=== PATIENT | female | born 1985 | race Caucasian/White ===

== ENCOUNTER 2016-07-28 00:18 | Emergency (ER) | payer SELFPAY ==
[2016-07-28 00:19] VITALS: BMI 30.8
[2016-07-28 00:53] VITALS: BP 142/89; PULSE 83; RESP 19; TEMP 98; O2SAT 100
[2016-07-28] MEDS ORDERED: DiphenhydrAMINE 50 mg/ml Inj IV STA (01:01)
--- NOTE | 2016-07-28 01:18 | ED PDOC ---
HPI: Skin/Bite Injury Time Seen by Provider: 07/28/16 00:48 Chief Complaint (Nursing): Abnormal Skin Integrity Chief Complaint (Provider): rash History Per: Patient History/Exam Limitations: no limitations Onset/Duration Of Symptoms: Hrs (8) Current Symptoms Are (Timing): Still Present Quality Of Symptoms: Itching Additional History Per: Patient Additional Complaint(s): 31 y/o female no past medical history presents with generalized prutitic rash x 8 hours. Patient notes feeling "flushed". Denies facial swelling, difficulty speaking/swallowing, cough, chest pain, shortness of breath, palpitations, known allergen. Past Medical History Reviewed: Historical Data, Nursing Documentation, Vital Signs Vital Signs: Last Vital Signs Temp 98 F 07/28/16 00:47 Pulse 83 07/28/16 00:47 Resp 19 07/28/16 00:47 BP 142/89 07/28/16 00:47 Pulse Ox 100 07/28/16 01:18 - Medical History PMH: No Chronic Diseases - Family History Family History: States: Unknown Family Hx - Living Arrangements Living Arrangements: With Family - Immunization History Hx Tetanus Toxoid Vaccination: No Hx Influenza Vaccination: Yes Hx Pneumococcal Vaccination: No - Home Medications Home Medications: Ambulatory Orders Medication Instructions Recorded Bacitracin 1 ea TP TID PRN #20 g 07/11/13 Cephalexin [Keflex] 2 cap PO BID #14 cap 07/11/13 Multivitamin and [id number] 1 tab PO DAILY 07/11/13 [] Prednisone 50 mg PO DAILY #4 tablet 07/28/16 - Allergies Allergies/Adverse Reactions: Allergies Allergy/AdvReac Type Severity Reaction Status Date / Time No Known Allergies Allergy Verified 06/17/13 03:31 Review of Systems ROS Statement: Except As Marked, All Systems Reviewed And Found Negative Skin: Positive for: Rash Physical Exam - Reviewed Nursing Documentation Reviewed: Yes Vital Signs Reviewed: Yes - Physical Exam Appears: Positive for: Well, Non-toxic, Uncomfortable (scratching) Head Exam: Positive for: ATRAUMATIC, NORMAL INSPECTION, NORMOCEPHALIC Skin: Positive for: Rash (erythematous welts scattered throughout face, chest, abdomen, back, bL upper and lower extremities. ) Eye Exam: Positive for: Normal appearance ENT: Positive for: Normal ENT Inspection Cardiovascular/Chest: Positive for: Regular Rate, Rhythm Respiratory: Positive for: Normal Breath Sounds Gastrointestinal/Abdominal: Positive for: Normal Exam Extremity: Positive for: Normal ROM Neurologic/Psych: Positive for: Alert, Oriented - ECG O2 Sat by Pulse Oximetry: 100 - Progress ED Course And Treament: Solumedrol, Benadryl, Pepcid IV given. On re-eval, rash resolved. Patient states she is feeling better. Rx Prednisone provided. Advised Benadryl PRN. Follow up PMD 2-3 days. Return to ED for worsening/concerning symptoms. Disposition - Clinical Impression Clinical Impression: Rash - Patient ED Disposition Is Patient to be Admitted: No Counseled Patient/Family Regarding: Diagnosis, Need For Followup, Rx Given - Disposition Referrals: [facility] [Outside] Disposition: Routine/Home Disposition Time: 03:03 Condition: IMPROVED Prescriptions: Prednisone 50 mg PO DAILY #4 tablet Instructions: Acute Rash (ED) Print Language: [place]
== END 2016-07-28 03:02 | disposition home or self-care (01) ==
LOC: H.ER 00:18
DX: R21 Rash and other nonspecific skin eruption (principal)
CPT/HCPCS: 81025; 96374; 96375; 99281; J1200; J2930